=== PATIENT | female | born 1955 | race Caucasian/White ===

== ENCOUNTER 2020-05-07 18:28 | Observation (INO) | payer OTHER ==
[~2020-05-07] VITALS: Ht 170.2 cm; Wt 94.8 kg
[2020-05-07 19:30] LABS: HEMOGLOBIN 13.8 gm/dl (12.3-15.3); RED BLOOD COUNT 4.5 M/UL (4.00-5.10); WHITE BLOOD COUNT 11.3 K/UL (4.5-11.0)
[2020-05-08] MEDS ORDERED: FUROSEMIDE40 MG PO ×2 (01:27→11:05)
[2020-05-08] MEDS ORDERED: GLIPIZIDE ER10 MG PO ×2 (01:28→11:05)
[2020-05-08] MEDS ORDERED: POTASSIUM CHLO20 ME2 PO ×2 (01:28→11:05)
[2020-05-08] MEDS ORDERED: ATORVASTATIN CA40 MG PO ×2 (01:28→11:05)
[2020-05-08] MEDS ORDERED: LISINOPRIL10 MG PO ×2 (01:29→11:05)
[2020-05-08] MEDS ORDERED: VITAMIN B12-FO1 EACH PO ×2 (01:30→11:05)
[2020-05-08] MEDS ORDERED: VITAMIN C500 MG PO ×2 (01:30→11:05)
[2020-05-08] MEDS ORDERED: ASPIRIN81 MG PO ×2 (01:30→11:05)
[2020-05-08 07:25] LABS: HEMOGLOBIN 12.9 gm/dl (12.3-15.3); RED BLOOD COUNT 4.38 M/UL (4.00-5.10); WHITE BLOOD COUNT 7.8 K/UL (4.5-11.0)
[2020-05-08 07:48] LABS: BUN/CREATININE RATIO 24 (0-10)
[2020-05-09 03:18] LABS: HEMOGLOBIN 12.3 gm/dl (12.3-15.3); RED BLOOD COUNT 4.12 M/UL (4.00-5.10); WHITE BLOOD COUNT 9.2 K/UL (4.5-11.0)
[2020-05-09 03:55] LABS: BUN/CREATININE RATIO 36 (0-10)
--- NOTE | 2020-05-09 08:34 | NUR ---
PATIENT REMOVED OWN IV THIS MORNING AND STATED THAT SHE WAS GOING TO LEAVE, PATIENT EDUCATED ABOUT IMPORTANCE OF TREATMENT AND SAID SHE WOULD STAY BUT WAS LEAVING AT 0800. WENT IN PATIENTS ROOM AT 0826, ROOM WAS FOUND EMPTY AND PATIENTS BELONINGS WERE GONE. DR. BARTLETT WAS CONTACTED.
== END 2020-05-09 08:00 | disposition left against medical advice (07) ==
LOC: ER1 18:28 → CDU 22:24 → M/S 22:24
PROVIDERS: Physician Assistant Medical; ADMIT Internal Medicine
DX: R07.89 Other chest pain (principal); R06.02 Shortness of breath; J40 Bronchitis, not specified as acute or chronic; R35.0 Frequency of micturition; I11.0 Hypertensive heart disease with heart failure; I50.9 Heart failure, unspecified; E11.9 Type 2 diabetes mellitus without complications; E78.5 Hyperlipidemia, unspecified; I08.1 Rheumatic disorders of both mitral and tricuspid valves; Z20.822 Contact with and (suspected) exposure to COVID-19; Z82.49 Family history of ischemic heart disease and other diseases of the circulatory system; Z88.5 Allergy status to narcotic agent
CPT/HCPCS: ECHO; 0240U; 36415; 70450; 71045; 80048; 80053; 80061; 80307; 81001; 82550; 82553; 82962; 83036; 83874; 83880; 84484; 85025; 85027; 93005; 93306; 94640; 94664; 94760; 96372; 96374; 96375; 99285; G0378; J0696; J1650; J1940; J2060

== ENCOUNTER 2020-05-11 04:44 | Emergency (ER) | payer OTHER ==
[~2020-05-11 04:44] MED LIST: ASPIRIN81 MG PO; ATORVASTATIN CA40 MG PO; FUROSEMIDE40 MG PO; GLIPIZIDE ER10 MG PO; LISINOPRIL10 MG PO; POTASSIUM CHLO20 ME2 PO; VITAMIN B12-FO1 EACH PO; VITAMIN C500 MG PO
[2020-05-11 05:20] LABS: HEMOGLOBIN 14.3 gm/dl (12.3-15.3); RED BLOOD COUNT 4.63 M/UL (4.00-5.10); WHITE BLOOD COUNT 10.6 K/UL (4.5-11.0)
[2020-05-11 05:43] LABS: BUN/CREATININE RATIO 27 (0-10)
[2020-05-11] MEDS ORDERED: GLIPIZIDE ER10 MG PO (17:22)
[2020-05-11] MEDS ORDERED: LIPITOR40 MG PO (17:22)
[2020-05-11] MEDS ORDERED: KLOR-CON M2020 MEQ PO (17:22)
[2020-05-11] MEDS ORDERED: LISINOPRIL10 MG PO (17:22)
[2020-05-11] MEDS ORDERED: LASIX 40 MG TAB40 MG PO (17:22)
== END 2020-05-11 06:53 | disposition home or self-care (01) ==
LOC: ER1 04:44
PROVIDERS: Family Medicine
DX: R07.9 Chest pain, unspecified (principal); E11.9 Type 2 diabetes mellitus without complications; I11.0 Hypertensive heart disease with heart failure; I50.9 Heart failure, unspecified; F17.200 Nicotine dependence, unspecified, uncomplicated; Z90.710 Acquired absence of both cervix and uterus; Z88.5 Allergy status to narcotic agent; Z79.899 Other long term (current) drug therapy
CPT/HCPCS: 71045; 80053; 82550; 82553; 83874; 84484; 85025; 93005; 99285; G0480

== ENCOUNTER 2020-05-11 15:44 | Emergency (ER) | payer OTHER ==
[2020-05-11 16:31] LABS: HEMOGLOBIN 12.6 gm/dl (12.3-15.3); RED BLOOD COUNT 4.21 M/UL (4.00-5.10); WHITE BLOOD COUNT 8.8 K/UL (4.5-11.0)
[2020-05-11 17:03] LABS: BUN/CREATININE RATIO 29 (0-10)
[2020-05-11] MEDS ORDERED: LISINOPRIL10 MG PO (17:22)
[2020-05-11] MEDS ORDERED: GLIPIZIDE ER10 MG PO (17:22)
[2020-05-11] MEDS ORDERED: KLOR-CON M2020 MEQ PO (17:22)
[2020-05-11] MEDS ORDERED: LIPITOR40 MG PO (17:22)
[2020-05-11] MEDS ORDERED: LASIX 40 MG TAB40 MG PO (17:22)
== END 2020-05-11 18:30 | disposition home or self-care (01) ==
LOC: ER1 15:44
PROVIDERS: Student in an Organized Health Care Education/Training Program
DX: R07.89 Other chest pain (principal); Z76.0 Encounter for issue of repeat prescription; I11.0 Hypertensive heart disease with heart failure; I50.9 Heart failure, unspecified; E11.9 Type 2 diabetes mellitus without complications; Z88.5 Allergy status to narcotic agent; Z79.82 Long term (current) use of aspirin; Z79.899 Other long term (current) drug therapy
CPT/HCPCS: 71045; 80053; 82550; 82553; 83874; 84484; 85025; 93005; 99285

== ENCOUNTER 2020-05-12 19:41 | Emergency (ER) | payer OTHER ==
[~2020-05-12 19:41] MED LIST changes: +KLOR-CON M2020 MEQ PO; +LASIX 40 MG TAB40 MG PO; +LIPITOR40 MG PO
[2020-05-13] MEDS ORDERED: ZOFRAN ODT 4 MG4 MG PO (02:57)
[2020-05-13] MEDS ORDERED: LODINE CAP 300300 MG PO (02:57)
== END 2020-05-12 22:02 | disposition home or self-care (01) ==
LOC: ER1 19:41
DX: S93.402A Sprain of unspecified ligament of left ankle, initial encounter (principal); E11.9 Type 2 diabetes mellitus without complications; I10 Essential (primary) hypertension; Z88.5 Allergy status to narcotic agent; W01.0XXA Fall on same level from slipping, tripping and stumbling without subsequent striking against object, initial encounter; Y92.410 Unspecified street and highway as the place of occurrence of the external cause
CPT/HCPCS: 73610; 73630; 99283

== ENCOUNTER 2020-05-13 02:46 | Emergency (ER) | payer OTHER ==
[2020-05-13] MEDS ORDERED: ZOFRAN ODT 4 MG4 MG PO (02:57)
[2020-05-13] MEDS ORDERED: LODINE CAP 300300 MG PO (02:57)
== END 2020-05-13 02:58 | disposition home or self-care (01) ==
LOC: ER1 02:46
DX: S93.402A Sprain of unspecified ligament of left ankle, initial encounter (principal); S93.602A Unspecified sprain of left foot, initial encounter; E11.9 Type 2 diabetes mellitus without complications; I10 Essential (primary) hypertension; Z88.5 Allergy status to narcotic agent; W19.XXXA Unspecified fall, initial encounter
CPT/HCPCS: 29515; 99283

== ENCOUNTER 2020-05-15 08:07 | Emergency (ER) | payer OTHER ==
[~2020-05-15 08:07] MED LIST changes: +LODINE CAP 300300 MG PO; +ZOFRAN ODT 4 MG4 MG PO
[2020-05-15 10:24] LABS: HEMOGLOBIN 12.8 gm/dl (12.3-15.3); RED BLOOD COUNT 4.23 M/UL (4.00-5.10); WHITE BLOOD COUNT 8.7 K/UL (4.5-11.0)
[2020-05-15 10:44] LABS: BUN/CREATININE RATIO 29 (0-10)
[2020-05-15] MEDS ORDERED: K-DUR TAB 20 M20 MEQ PO (13:48)
[2020-05-15] MEDS ORDERED: GLIPIZIDE ER10 MG PO (13:48)
[2020-05-15] MEDS ORDERED: LASIX40 MG PO (13:48)
[2020-05-15] MEDS ORDERED: LISINOPRIL10 MG PO (13:48)
[2020-05-15] MEDS ORDERED: LIPITOR40 MG PO (13:48)
== END 2020-05-15 11:30 | disposition home or self-care (01) ==
LOC: ER1 08:07
PROVIDERS: Physician Assistant
DX: S93.402A Sprain of unspecified ligament of left ankle, initial encounter (principal); S93.602A Unspecified sprain of left foot, initial encounter; J40 Bronchitis, not specified as acute or chronic; E78.5 Hyperlipidemia, unspecified; E11.9 Type 2 diabetes mellitus without complications; Z88.5 Allergy status to narcotic agent; X58.XXXA Exposure to other specified factors, initial encounter
CPT/HCPCS: 71045; 73610; 73630; 80053; 82550; 82553; 83874; 84484; 85025; 93005; 99284

== ENCOUNTER 2020-05-16 12:59 | Emergency (ER) | payer OTHER ==
[~2020-05-16 12:59] MED LIST changes: +K-DUR TAB 20 M20 MEQ PO; +LASIX40 MG PO
== END 2020-05-16 13:43 | disposition home or self-care (01) ==
LOC: ER1 12:59
DX: S93.402A Sprain of unspecified ligament of left ankle, initial encounter (principal); I10 Essential (primary) hypertension; E11.9 Type 2 diabetes mellitus without complications; Z88.5 Allergy status to narcotic agent
CPT/HCPCS: 99283

== ENCOUNTER 2020-05-17 21:24 | Emergency (ER) | payer OTHER | END 2020-05-18 09:50 | LOC: ER1 21:24 | DX: F99 Mental disorder, not otherwise specified (principal); Z59.0 Homelessness | CPT/HCPCS: 73610; 99283 ==